=== PATIENT | male | born 1930 | race Caucasian/White ===

== ENCOUNTER 2018-06-05 11:39 | Inpatient (IN) ==
[2018-06-05] MEDS ORDERED: Ondansetron ODT 4 MG TAB.RAPDIS SL ONE (12:01)
--- NOTE | 2018-06-05 12:02 | Emergency Department Note ---
Disposition Clinical Impression: Dehydration, Drug-induced nausea and vomiting, Prostate cancer Disposition: Admitted As Inpatient Condition: Fair General Adult HPI - General Chief complaint: ED Nausea/Vomiting/Diarrhea Stated complaint: Vomiting,Weakness,CA Pt Time Seen by Provider: 06/05/18 11:55 Source: patient, family Limitations: no limitations - History of Present Illness Pain Scale: 0 - Related Data Home Medications Medication Instructions Recorded Confirmed Levothyroxine [Synthroid] 112 mcg PO 0630 12/14/16 06/05/18 Lupron Depot 45 mg IM [id number] 12/14/16 06/05/18 Tamsulosin HCl [Flomax] 0.4 mg PO DAILY 01/11/17 06/05/18 Denosumab [Xgeva] 120 mg SQ QMONTH 04/24/17 06/05/18 Gabapentin [Neurontin] 600 mg PO DAILY 04/24/17 06/05/18 Polyethylene Glycol 3350 [MiraLAX 1 scoop PO DAILY PRN 04/24/17 06/05/18 Powder Bulk 17.9 Oz] Acetaminophen [Tylenol] 500 mg PO Q6HR PRN 05/29/17 06/05/18 Previous Rx's Medication Instructions Recorded RX: PredniSONE [Cam] 5 mg PO BID #180 tablet.dr 12/19/17 Ondansetron HCl [Zofran] 4 mg PO Q8HR PRN #90 tab 04/18/18 Prochlorperazine Maleate 10 mg PO Q8HR PRN #90 tablet 04/18/18 [Compazine] RX: Dexamethasone [Decadron] 4 mg PO BID #36 tab 04/18/18 RX: Loperamide [Imodium] 2 mg PO Q4HR PRN #90 capsule 04/18/18 RX: Supplies [SUPPLIES] 1 each .ROUTE PRN PRN #1 each 06/04/18 Allergies Allergy/AdvReac Type Severity Reaction Status Date / Time Penicillins Allergy UNKNOWN Verified 06/05/18 11:52 Past Medical History - Past Medical History Medical history: Reports: cancer, diabetes, GERD, hyperlipidemia, hypertension, thyroid disease, valvular heart disease, other Surgical history: Reports: cataract, herniorrhaphy, other (Hemorrhoidectomy, skin cancer excisions) Psychiatric history: Reports: no psych history - Social History Smoking Status: Former smoker Smokeless Tobacco Status: No Alcohol use: Reports: rarely Drug use: Reports: none Physical Exam - General Limitations: no limitations General appearance: alert, in no apparent distress Course Vital Signs Temperature 97.3 F L 06/05/18 11:50 Pulse Rate 70 06/05/18 11:50 Respiratory Rate 16 06/05/18 11:50 Blood Pressure 136/80 06/05/18 11:50 O2 Sat by Pulse Oximetry 94 06/05/18 11:50 Temperature 98.0 F 06/05/18 17:08 Pulse Rate 85 06/05/18 17:08 Respiratory Rate 18 06/05/18 17:08 Blood Pressure 120/55 06/05/18 17:08 O2 Sat by Pulse Oximetry 90 06/05/18 17:08 Oxygen Delivery Oxygen Delivery Room Air Medical Decision Making - Lab Data Result diagrams: 06/05/18 14:53 06/05/18 12:41 Lab Results 06/05/18 06/05/18 06/05/18 Range/Units 12:41 14:53 14:53 WBC 8.9 (4.3-11.1) K/mcL RBC 3.57 L (4.19-5.50) M/mcL Hgb 10.1 L (12.9-16.9) g/dL Hct 34.1 L (37.5-50.1) % MCV 95.5 (83.0-100.0) fL MCH 28.3 (28.0-33.3) pg MCHC 29.6 L (31.6-35.5) g/dL RDW 20.3 H (11.5-14.5) % Plt Count 139 L (140-400) K/mcL MPV 11.0 (9.4-12.4) fL Immature Gran % 2.6 (0-4) % Seg Neutrophils % 87.5 % Lymphocytes % 3.0 % Monocytes % 6.5 % Eosinophils % 0.1 % Basophils % 0.3 % Neutrophils # 7.8 (1.6-8.9) K/mcL Lymphocytes # 0.3 L (0.6-4.6) K/mcL Monocytes # 0.6 (0.0-1.3) K/mcL Eosinophils # 0.0 (0.0-0.6) K/mcL Basophils # 0.0 (0.0-0.2) K/mcL Nucleated RBCs/100 WBC 0.7 H (0) /100 WBC PT 12.9 H (9.4-12.1) Seconds INR 1.1 Sodium 139 (136-145) mEq/L Potassium 4.6 (3.5-5.1) mEq/L Chloride 103 (98-107) mEq/L Carbon Dioxide 22 L (23-29) mEq/L BUN 42 H (8-23) mg/dL Creatinine 1.41 H (0.70-1.30) mg/dL Est GFR ( Amer) 58 L (> 60) Est GFR (Non-Af Amer) 48 L (> 60) BUN/Creatinine Ratio 30 H (6-26) Glucose 154 H (70-105) mg/dL Calculated Osmolality 302 H (280-300) Uric Acid 11.0 H (2.3-7.6) mg/dL Calcium 8.2 L (8.6-10.3) mg/dL Phosphorus 3.1 (2.7-4.5) mg/dL Magnesium 2.4 (1.6-2.6) mg/dL Attestation Statement - Attestation Attestation: I examined this patient and my medical decision-making was reviewed with the Resident Physician. I agree with the documented findings, disposition and treatment plan as described except to the extent set forth below. [id number] time provided Patient [facility] from [facility] where he is being treated with chemotherapy for metastatic prostate cancer. He complains of nausea and vomiting. He denies having any pain. He states the anti-emetics as administered at the [facility] prior to arrival were ineffective
[2018-06-05] MEDS ORDERED: Ringers Solution, Lactated 1,000 ML IVC ONE (12:29)
--- NOTE | 2018-06-05 12:31 | Emergency Department Note ---
Disposition Clinical Impression: Dehydration, Drug-induced nausea and vomiting, Prostate cancer Disposition: Admitted As Inpatient Condition: Fair Instructions: Acute Nausea and Vomiting (ED) Referrals: NONE,PCP [Primary Care Provider] - Forms: ED Satisfaction Letter Time of Disposition: 15:15 General Adult HPI - General Chief complaint: ED Nausea/Vomiting/Diarrhea Stated complaint: Vomiting,Weakness,CA Pt Time Seen by Provider: 06/05/18 11:55 Source: patient, family Limitations: no limitations Nursing Notes Reviewed: Yes Vital Signs Reviewed: Yes - History of Present Illness HPI Narrative: This a 87-year-old male with past medical history significant for metastatic prostate cancer, hypertension, hyperlipidemia, thyroid disease, valvular heart disease who presents from [facility] with nausea and vomiting. Per linette somers, patient has experienced nausea and vomiting worsening over the past day, but off and on for the past 3 weeks. States that he woke up this morning feeling nauseous, has vomited 8-10 times since then. Associated with loose stools, fatigue, lethargy, weakness, lightheadedness , decreased appetite over the past few days. Of note, patient has also been constipated of recent, but constipation is improved with MiraLAX. Patient's states that most of symptoms began after chemotherapy treatment approximately 3 weeks ago. Denies hematemesis, melena, hematochezia. Otherwise denies fevers/chills, headache, blurry vision, chest pain, shortness of breath, abdominal pain. Patient was receiving chemotherapy today, but continue to complain of nausea. He was given medication at [facility] (patient does not recall what he was given), but nausea did not subside and so presented to the ED. Denies recent sick contacts or upper respiratory symptoms. Pt Subjective Complaint: Nausea, Vomiting Onset (ago): day(s) (Past 1 day) Location: abdomen Radiation: non-radiation Pain Severity: mild Pain Scale: 0 Consistency: constant (Constant nausea) Improves with: nothing Worsens with: nothing Associated symptoms: Reports: loss of appetite, nausea/vomiting. Denies: confusion, chest pain, cough, diaphoresis, fever/chills, headaches, malaise, ra sh, shortness of breath, syncope, weakness Treatments Prior to Arrival: none - Related Data Home Medications Medication Instructions Recorded Confirmed Levothyroxine [Synthroid] 112 mcg PO 0630 12/14/16 06/05/18 Lupron Depot 45 mg IM [id number] 12/14/16 06/05/18 Tamsulosin HCl [Flomax] 0.4 mg PO DAILY 01/11/17 06/05/18 Denosumab [Xgeva] 120 mg SQ QMONTH 04/24/17 06/05/18 Gabapentin [Neurontin] 600 mg PO DAILY 04/24/17 06/05/18 Polyethylene Glycol 3350 [MiraLAX 1 scoop PO DAILY PRN 04/24/17 06/05/18 Powder Bulk 17.9 Oz] Acetaminophen [Tylenol] 500 mg PO Q6HR PRN 05/29/17 06/05/18 Previous Rx's Medication Instructions Recorded PredniSONE [Cam] 5 mg PO BID #180 tablet. 12/19/17 Dexamethasone [Decadron] 4 mg PO BID #36 tab 04/18/18 Loperamide [Imodium] 2 mg PO Q4HR PRN #90 capsule 04/18/18 Ondansetron HCl [Zofran] 4 mg PO Q8HR PRN #90 tab 04/18/18 Prochlorperazine Maleate 10 mg PO Q8HR PRN #90 tablet 04/18/18 [Compazine] Supplies [SUPPLIES] 1 each .ROUTE PRN PRN #1 each 06/04/18 Allergies Allergy/AdvReac Type Severity Reaction Status Date / Time Penicillins Allergy UNKNOWN Verified 06/05/18 11:52 All systems ED: reviewed and negative except as stated. Constitutional: Reports: weakness. Denies: fever, chills, night sweats Eyes: Denies: vision change ENT ED: Denies: hearing loss Cardiovascular: Denies: chest pain, palpitations, dyspnea on exertion, orthopnea, syncope Respiratory: Denies: cough, dyspnea Gastrointestinal: Reports: nausea, vomiting, diarrhea, constipation. Denies: abdominal pain, hematemesis, melena, hematochezia Genitourinary: Denies: dysuria Musculoskeletal: Denies: back pain Neurological: Reports: weakness, other (Lightheadedness). Denies: headache, numbness, paresthesias Endocrine: Reports: fatigue Past Medical History - Past Medical History Attestation: Yes The following information was validated with the patient. Source: patient, old records reviewed Medical history: Reports: cancer, diabetes, GERD, hyperlipidemia, hypertension, thyroid disease, valvular heart disease, other Surgical history: Reports: cataract, herniorrhaphy, other (Hemorrhoidectomy, skin cancer excisions) Psychiatric history: Reports: no psych history - Social History Smoking Status: Former smoker Smokeless Tobacco Status: No Alcohol use: Reports: rarely Drug use: Reports: none Physical Exam - General Limitations: no limitations General appearance: alert, in no apparent distress - Head Head exam: atraumatic, normocephalic, normal inspection - Eye Eye exam: Present: normal appearance, PERRL, EOMI - ENT ENT exam: normal exam, normal oropharynx, mucous membranes dry - Chest Chest inspection: Present: normal inspection, symmetric chest wall rise - Respiratory Respiratory exam: Present: normal lung sounds bilaterally - Cardiovascular Cardiovascular exam: Present: regular rate (Irregular rhythm; 2/6 systolic murmur appreciated in the right parasternal second intercostal space), systolic murmur, +S1, +S2 - Abdominal Exam Abdominal exam: Present: soft, Non-Tender, normal bowel sounds. Absent: guarding, rebound - Extremities Exam Extremities exam: Present: normal inspection, full ROM, normal capillary refill - Neurological Exam Neurological exam: Present: alert, oriented X3, CN II-XII intact - Psychiatric Psychiatric exam: Present: normal affect, normal mood Course Course Narrative: This is a 87-year-old male with past medical history significant for metastatic prostate cancer who presented with nausea and vomiting over the past day. Patient was in cancer Center this morning for chemotherapy, and noted to be extremely nauseous. Patient did not respond to medication given in cancer Center, and was subsequently sent to ED. On arrival patient noted to be dehydrated, very nauseous. On exam, patient looked lethargic, and very uncomfortable. Otherwise no focal findings. Lab work obtained, and patient was given sublingual Zofran. Patient was started on 1 L bolus of lactated Ringer's. Lab work was indicative of elevated uric acid, decreased calcium, with normal phosphate and Potassium. However suspicion of tumor lysis syndrome was raised. Spoke with Tala Ball, oncology, was also concern with patie nt's elevated uric acid. Given multiple concerns in this metastatic prostate cancer patient, spoke with Dr. Orozco who admitted patient to hospital service. - Reevaluation(s) Reevaluation #1: Patient seen and examined with Dr. Bui. We will trial sublingual Zofran for treatment of nausea. However given patient tachycardia and lack of appetite, will give patient bolus of lactated Ringer's and check labs. Additionally with irregular heart rhythm, will get EKG. If nausea persists, we will consider IV medications. Time: 13:30 Reevaluation #2: Patient mildly improved after lactated Ringer's, and sublingual Zofran. Reports improving nausea. Lab work was significant for elevated uric acid, decreased calcium. Possibility of tumor lysis syndrome considered. Consultation with heme oncology and spoke with Tala whittaker. Given patient's dehydration, nausea, vomiting, possibility of tumor lysis syndrome, we will admit to hospitalist service. Spoke with Dr. Orozco who accepted patient. Time: 14:45 Vital Signs Temperature 97.3 F L 06/05/18 11:50 Pulse Rate 70 06/05/18 11:50 Respiratory Rate 16 06/05/18 11:50 Blood Pressure 136/80 06/05/18 11:50 O2 Sat by Pulse Oximetry 94 06/05/18 11:50 Temperature 97.3 F L 06/05/18 11:50 Pulse Rate 87 06/05/18 14:25 Respiratory Rate 20 06/05/18 14:25 Blood Pressure 132/65 06/05/18 14:25 O2 Sat by Pulse Oximetry 98 06/05/18 14:25 Oxygen Delivery Oxygen Delivery Room Air Medical Decision Making - [facility] Narrative Medical decision making narrative: 87-year-old male with past medical history significant for metastatic prostate cancer presents with nausea and vomiting from cancer Center. Patient was given sublingual Zofran while here, and additionally given 1 L bolus of lactated Ringer's. Patient reported improvement, and improving nausea. However lab work was notable for hyperuricemia and hypocalcemia. Concern for tumor lysis syndrome. Discussed case with oncology and hospitalist. Given patient's metastatic cancer and dehydration, will admit patient for further management. - Differential Diagnosis Dehydration, gastroenteritis, tumor lysis syndrome, influenza - Medical Records Medical records reviewed: Yes I reviewed the patient's medical records. - Lab Data Lab results reviewed: Yes I reviewed the patient's lab results. Result diagrams: 06/05/18 12:41 Lab Results 06/05/18 Range/Units 12:41 Sodium 139 (136-145) mEq/L Potassium 4.6 (3.5-5.1) mEq/L Chloride 103 (98-107) mEq/L Carbon Dioxide 22 L (23-29) mEq/L BUN 42 H (8-23) mg/dL Creatinine 1.41 H (0.70-1.30) mg/dL Est GFR ( Amer) 58 L (> 60) Est GFR (Non-Af Amer) 48 L (> 60) BUN/Creatinine Ratio 30 H (6-26) Glucose 154 H (70-105) mg/dL Calculated Osmolality 302 H (280-300) Uric Acid 11.0 H (2.3-7.6) mg/dL Calcium 8.2 L (8.6-10.3) mg/dL Phosphorus 3.1 (2.7-4.5) mg/dL Magnesium 2.4 (1.6-2.6) mg/dL - EKG Data EKG #1 EKG attestation: Yes I reviewed and interpreted this EKG. EKG results narrative: sinus rhythm, irregular rhythm, heart rate = 81, LA = 169, QRS = 137, QTC = 491, left axis deviation; normal sinus rhythm with PACs; otherwise no acute ST changes. EKG is largely unchanged from previous EKG on 01/26/2017 EKG shows normal: sinus rhythm Rate: normal Rhythm: NSR, PAC's [place]/QRS: left axis deviation QTc: prolonged Ectopy: PAC When compared to previous EKG there are: no significant changes Interpretation: no acute changes
[2018-06-05 13:26] LABS: Calcium 8.2 mg/dL (8.6-10.3); Magnesium 2.4 mg/dL (1.6-2.6); Phosphorous 3.1 mg/dL (2.7-4.5); Potassium 4.6 mEq/L (3.5-5.1)
[2018-06-05] MEDS: Acetaminophen 325 MG TABLET PO PRN ×2 (15:07→21:31)
[2018-06-05 15:31] LABS: Basophils % 0.3 %; Eosinophils % 0.1 %; Hematocrit 34.1 % (37.5-50.1); Hemoglobin 10.1 g/dL (12.9-16.9); Immature Granulocytes % 2.6 % (0-4); Lymphocytes # 0.3 K/mcL (0.6-4.6); Mean Corpuscular HGB Conc 29.6 g/dL (31.6-35.5); Mean Corpuscular Hemoglobin 28.3 pg (28.0-33.3); Mean Corpuscular Volume 95.5 fL (83.0-100.0); Monocytes # 0.6 K/mcL (0.0-1.3); Monocytes % 6.5 %; Neutrophils # 7.8 K/mcL (1.6-8.9); Nucleated Red Blood Cells 0.7 /100 WBC (0); Platelet Count 139 K/mcL (140-400); Red Blood Count 3.57 M/mcL (4.19-5.50); Red Cell Distribution Width 20.3 % (11.5-14.5); Segmented Neutrophils % 87.5 %
[2018-06-05 15:40] LABS: INR 1.1; Prothrombin Time 12.9 Seconds (9.4-12.1)
[2018-06-05] MEDS ORDERED: Naloxone 0.4 MG/ML INJ IVP PRN (16:33)
--- NOTE | 2018-06-05 16:55 | Internal Med History&Physical ---
Date of Encounter: 06/05/18 Time of Encounter: 16:00 Internal Medicine - H&P: HPI Chief complaint: Nausea and vomiting Admitted From: Home Plans for Post Hospital Care: Home History of present illness: Mr. Sanchez is a 87 year old male is an to ER for nausea and vomiting. Past medical history is significant for hypothyroidism, metastatic prostate cancer on chemotherapy. Patient has nausea vomiting started from this morning. Patient has more than 10 times vomiting. The vomiting are greenish fluid, no coffee ground emesis, no blood in it. Patient has mild right-sided abdominal pain. No diarrhea. Patient also has no fever. Patient has no chest pain or shortness of breath. Patient is supposed to have a chemotherapy today but not started chemotherapy yet. Patient has finished two rounds of chemotherapy, last chemotherapy was 3 weeks ago. Patient was treated with IV fluid and Zofran in the emergency room. His symptoms has significantly improved after treatment. Patient was admitted for further management. Past Med Surg Social Fam HX - Past Medical History Medical history: cancer, diabetes, GERD, hyperlipidemia, hypertension, thyroid disease, valvular heart disease, other Additional medical history: CA OF BONE AND PROSTATE. SKIN CA Psychiatric history: no psych history - Past Surgical History Surgical History: cataract, herniorrhaphy, other (Hemorrhoidectomy, skin cancer excisions) - Social History Smoking Status: Former smoker Smokeless Tobacco Status: No Alcohol use: rarely Drug use: none - Family History Mother History Unknown: Yes Internal Medicine - H&P: Meds Levothyroxine [Synthroid] 112 mcg PO 0630 12/14/16 [History] Lupron Depot 45 mg IM [id number] 12/14/16 [History] Tamsulosin HCl [Flomax] 0.4 mg PO DAILY 01/11/17 [History] Denosumab [Xgeva] 120 mg SQ QMONTH 04/24/17 [History] Gabapentin [Neurontin] 600 mg PO DAILY 04/24/17 [History] Polyethylene Glycol 3350 [MiraLAX Powder Bulk 17.9 Oz] 1 scoop PO DAILY PRN 04/24/17 [History] Acetaminophen [Tylenol] 500 mg PO Q6HR PRN 05/29/17 [History] PredniSONE [Cam] 5 mg PO BID #180 tablet. 12/19/17 [Rx] Dexamethasone [Decadron] 4 mg PO BID #36 tab 04/18/18 [Rx] Loperamide [Imodium] 2 mg PO Q4HR PRN #90 capsule 04/18/18 [Rx] Ondansetron HCl [Zofran] 4 mg PO Q8HR PRN #90 tab 04/18/18 [Rx] Prochlorperazine Maleate [Compazine] 10 mg PO Q8HR PRN #90 tablet 04/18/18 [Rx] Supplies [SUPPLIES] 1 each .ROUTE PRN PRN #1 each 06/04/18 [Rx] Allergy/AdvReac Type Severity Reaction Status Date / Time Penicillins Allergy UNKNOWN Verified 06/05/18 11:52 All Systems PM: A 10-system review of systems was performed and is negative for pertinent findings except as documented above in the HPI. - Constitutional Vitals: Temp Pulse Resp BP Pulse Ox 97.3 F L 89 18 113/61 97 06/05/18 11:50 06/05/18 16:02 06/05/18 16:16 06/05/18 16:16 06/05/18 16:02 Exam: Pt is AAO x 3, in NAD HEENT: NC/AT, PERRL Neck: Supple, no JVD, no LAD Lungs: CTA b/l Heart: S1S2, RRR Abd: Soft, mild tenderness on RLQ, without rebound or guarding, BS hyperactive Ext: ROM wnl, no pedal edema Neuro: No focal deficit Internal Med - H&P Results - Labs CBC & Chem 7: 06/05/18 14:53 06/05/18 12:41 Labs: Short CBC 06/05/18 Range/Units 14:53 WBC 8.9 (4.3-11.1) K/mcL Hgb 10.1 L (12.9-16.9) g/dL Hct 34.1 L (37.5-50.1) % Plt Count 139 L (140-400) K/mcL Neutrophils # 7.8 (1.6-8.9) K/mcL BMP 06/05/18 12:41 Sodium 139 Potassium 4.6 Chloride 103 Carbon Dioxide 22 L BUN 42 H Creatinine 1.41 H Glucose 154 H Calcium 8.2 L - Assessment and Plan (1) Nausea and vomiting Current Visit: Yes Status: Acute Assessment and plan: Etiology is undetermined. Less likely related to chemotherapy because patient did not receive chemotherapy today and last chemotherapy was 3 weeks ago. Possibly viral gastritis. - Will order abdominal CT to rule out obstruction, gallstones, or appendicitis, etc. - Check his liver function and lipase - Continue IV fluid, place patient on clear liquid diet, zofran iv prn for nausea - Patient denies chest pain, EKG unremarkable, no history of CAD or risk factors, less likely ACS Qualifiers: Vomiting type: unspecified Qualified Code(s): R11.2 - Nausea with vomiting, unspecified (2) DVT prophylaxis Current Visit: Yes Status: Acute Assessment and plan: Heparin SC (3) Hypothyroidism Current Visit: Yes Status: Acute Assessment and plan: Continue home medications Qualifiers: Qualified Code(s): E03.9 - Hypothyroidism, unspecified (4) Dehydration Current Visit: Yes Status: Acute Assessment and plan: Continue IV fluid as above (5) Prostate cancer Current Visit: Yes Status: Acute Assessment and plan: With multiple bone metastasis. Oncology consult called by emergency room. - Continue pain control - Patient has no hypercalcemia, calcium 8.2 - Time Spent With Patient Total time spent is greater than 50% in coordination of care (as documented) at patient's floor/unit and/or counseling patient: 40 minutes Greater than 35 minutes
[2018-06-05] MEDS: Ringers Solution, Lactated 1,000 ML IVC SCH (18:11)
[2018-06-05] MEDS: *HR* Heparin 5,000 UNIT/ML VIAL SQ SCH (18:13)
[2018-06-05] MEDS: predniSONE 5 MG TABLET PO SCH (18:13)
[2018-06-05 22:19] LABS: Albumin 3.5 g/dL (3.5-5.7); Albumin/Globulin Ratio 1.5 (1.1-2.2); Bilirubin,Direct 0.2 mg/dL (0.0-0.2); Bilirubin,Indirect 0.3 mg/dL (0.0-1.2); Bilirubin,Total 0.5 mg/dL (0.3-1.0); Globulin 2.4 g/dL (2.4-3.5); Total Protein 5.9 g/dL (6.4-8.9)
[2018-06-05] MEDS ORDERED: traMADol 50 MG TABLET PO ONE (22:56)
[2018-06-06] MEDS: Acetaminophen 325 MG TABLET PO PRN (05:22)
[2018-06-06] MEDS: *HR* Heparin 5,000 UNIT/ML VIAL SQ SCH ×2 (05:22→17:23)
[2018-06-06] MEDS: Ringers Solution, Lactated 1,000 ML IVC SCH (05:22)
[2018-06-06 05:25] LABS: Basophils % 0.5 %; Eosinophils % 0.3 %; Hematocrit 29.8 % (37.5-50.1); Hemoglobin 8.9 g/dL (12.9-16.9); Immature Granulocytes % 2.7 % (0-4); Lymphocytes # 0.3 K/mcL (0.6-4.6); Lymphocytes % 4.7 %; Mean Corpuscular HGB Conc 29.9 g/dL (31.6-35.5); Mean Corpuscular Hemoglobin 28.3 pg (28.0-33.3); Mean Corpuscular Volume 94.9 fL (83.0-100.0); Mean Platelet Volume 10.9 fL (9.4-12.4); Monocytes # 0.4 K/mcL (0.0-1.3); Monocytes % 6.6 %; Neutrophils # 5.7 K/mcL (1.6-8.9); Nucleated Red Blood Cells 1.1 /100 WBC (0); Platelet Count 122 K/mcL (140-400); Red Blood Count 3.14 M/mcL (4.19-5.50); Red Cell Distribution Width 20.7 % (11.5-14.5); Segmented Neutrophils % 85.2 %
[2018-06-06] MEDS: Ondansetron 4 MG/2 ML VIAL IVP PRN ×2 (05:29→11:05)
[2018-06-06 05:47] LABS: BUN/Creatinine Ratio 29 (6-26); Blood Urea Nitrogen 35 mg/dL (8-23); Calcium 7.4 mg/dL (8.6-10.3); Carbon Dioxide 23 mEq/L (23-29); Chloride 106 mEq/L (98-107); Glucose 94 mg/dL (70-105); Magnesium 2.2 mg/dL (1.6-2.6); Osmolality,Calculated 294 (280-300); Potassium 4.5 mEq/L (3.5-5.1); Sodium 138 mEq/L (136-145); eGFR For Non-African Americans 57 (> 60)
[2018-06-06] MEDS: predniSONE 5 MG TABLET PO SCH ×2 (07:50→17:20)
[2018-06-06] MEDS ORDERED: Gadolinium Contrast Agent (WT Based) IV PRN (12:57)
[2018-06-06] MEDS ORDERED: *HR* Promethazine 25 MG/ML VIAL IVP PRN (12:58)
[2018-06-06] MEDS: OXYCODONE Oral CONC 10 MG/0.5 ML ORAL.SYG SL PRN ×2 (13:45→21:15)
--- NOTE | 2018-06-06 15:40 | Oncology Inp Consult Note ---
<Tala Wolf L - Last Filed: 06/06/18 15:49> Date of Encounter: 06/06/18 Time of Encounter: 12:00 Assessment and Plan (1) Nausea and vomiting Status: Acute Assessment and plan: Not well controlled on Zofran Added Phenergan 25 mg IV as needed IV fluid for rehydration Qualifiers: Vomiting type: unspecified Qualified Code(s): R11.2 - Nausea with vomiting, unspecified (2) DVT prophylaxis Status: Acute Assessment and plan: Heparin 5000 units subcutaneous (3) Prostate cancer Status: Acute Assessment and plan: Metastatic prostate cancer, Stage IV, with widespread bony disease. Prior treatment includes biraterone/prednisone started 01/15/17, this was stopped due to slow PSA progression up to 158. Started on Taxotere, cycle #1 04/24/2018, tolerated well with some mild fatigue. He presented for cycle #3 on 06/04/2018 acutely not feeling well with significant nausea and vomiting and concern for dehydration. He was given hydration along with Pepcid and Kytril with no improvement in symptoms and was asked to present to ER. CT of the abdomen and pelvis which revealed interval development of multiple hepatic hypodensities up to about 4 cm in size which most compatible metastatic disease, new right pelvic iliac chain lymphadenopathy, unchanged diffuse skeletal metastasis. PSA is noted to increase from 341 on 05/15/2018 to now 1005 on 06/05/2018. Plan: Discussed radiographic and biochemical progression with patient and patient's family at bedside. We discussed Options for treatment which include aggressive treatment approach with further treatment options versus hospice Patient and family would like to consider options over the weekend as we continued to work to provide him symptom relief Patient is experiencing increased abdominal pain as well as nausea and vomiting. She did not sleep well last night. For symptom control I have added Ativan PRN at bedtime to be given for anxiety or insomnia. Oxycodone oral solution has been added for pain control, (see below) Zpfran/phenergan for nausea MRI brain wo/w contrast given his persistent nausea/vomiting with noted progression Consider palliative care consult if needed for symptom management or after weekend if patient/family decided to pursue hospice route (4) Abdominal pain Status: Acute Assessment and plan: Abdominal pain likely secondary to progressive malignancy Plan: Oxycodone 5 mg oral solution has been added for pain control PRN, patient is opioid naive, starting at low dose and can increase if needed He may benefit from long-acting pain control, we will monitor use of when necessary medication to determine need for extended release If his pain remains poorly controlled over weekend please consider consulting with palliative care team for further management, I have already discussed this case with them Qualifiers: Qualified Code(s): R10.9 - Unspecified abdominal pain - Data of Consult Patient: known to practice within the last 3 years Consult date: 06/06/18 Requesting Physician: Aashish Jones Primary Care Provider: PCP NONE - Consult Narrative Reason for consult: Prostate Cancer History of present illness: Mr. Sanchez is an 87 male with known metastatic prostate cancer, Stage IV, with widespread bony disease. Prior treatment includes biraterone/prednisone started 01/15/17, this was stopped due to slow PSA progression up to 158. Started on Taxotere, cycle #1 04/24/2018, tolerated well with some mild fatigue. He presented for cycle #3 on 06/04/2018 acutely not feeling well with significant nausea and vomiting and concern for dehydration. He was given hydration along with Pepcid and Kytril with no improvement in symptoms and was asked to present to ER. On arrival to ER he had CT of the abdomen and pelvis which revealed interval development of multiple hepatic hypodensities up to about 4 cm in size which most compatible metastatic disease, new right pelvic iliac chain lymphadenopathy, unchanged diffuse skeletal metastasis. PSA is noted to increase from 341 on 05/15/2018 to now 1005 on 06/05/2018. He has been admitted for symptomatic management Past Med Surg [facility] - Past Medical History Medical history: cancer, diabetes, GERD, hyperlipidemia, hypertension, thyroid disease, valvular heart disease, other Additional medical history: CA OF BONE AND PROSTATE. SKIN CA Psychiatric history: no psych history - Past Surgical History Surgical History: cataract, herniorrhaphy, other (Hemorrhoidectomy, skin cancer excisions) - Social History Smoking Status: Former smoker Smokeless Tobacco Status: No Alcohol use: rarely Drug use: none - Family History Mother History Unknown: Yes Medications and Allergies Levothyroxine [Synthroid] 112 mcg PO 0630 12/14/16 [History] Lupron Depot 45 mg IM [id number] 12/14/16 [History] Tamsulosin HCl [Flomax] 0.4 mg PO DAILY 01/11/17 [History] Denosumab [Xgeva] 120 mg SQ QMONTH 04/24/17 [History] Gabapentin [Neurontin] 600 mg PO DAILY 04/24/17 [History] RX: PredniSONE [Cam] 5 mg PO BID #180 tablet. 12/19/17 [Rx] Ondansetron HCl [Zofran] 4 mg PO Q8HR PRN #90 tab 04/18/18 [Rx] Abiraterone Acetate [Zytiga] 500 mg PO DAILY 06/06/18 [History] Acetaminophen/Diphenhydramine [Acetaminophen Pm Caplet] 1 each PO QPM PRN 06/06/18 [History] Cholecalciferol (D-3) [Vitamin D] 1,000 unit PO DAILY 06/06/18 [History] Loratadine [Allergy Relief] 10 mg PO DAILY 06/06/18 [History] Pegfilgrastim [Neulasta (For Outpatient Infusion)] 6 mg SQ AD 06/06/18 [History] Allergy/AdvReac Type Severity Reaction Status Date / Time Penicillins Allergy UNKNOWN Verified 06/05/18 11:52 Constitutional: Present: anorexia, fatigue, weakness, weight loss. Absent: chills, fever(s) Eyes: Absent: change in vision Nose, mouth and throat: Absent: dysphagia, odynophagia Cardiovascular: Absent: chest pain, palpitations Respiratory: Present: dyspnea on exertion Gastrointestinal: Present: as per HPI, abdominal pain, nausea, vomiting. Absent: hematemesis, hematochezia, melena Genitourinary: Absent: dysuria, hematuria Musculoskeletal: Present: muscle weakness Integumentary: Absent: rash, wounds Neurological: Absent: focal weakness, frequent falls Psychiatric: Present: as per HPI Hematologic/Lymphatic: Present: as per HPI Oncology - Exam - Constitutional General appearance: cooperative, no acute distress, no febrile Exam: appears uncomfortable secondary to pain/nausea - Head Head exam: Present: atraumatic - ENT ENT exam: Present: mucous membranes moist, normal oropharynx - Respiratory Respiratory exam: Present: decreased breath sounds, CTAB. Absent: respiratory distress - Cardiovascular Cardiovascular exam: Present: RRR, +S1, +S2 - GI/Abdominal GI/Abdominal exam: Present: normal bowel sounds, soft, tenderness Additional comments: diffuse tenderness and tenderness to RUQ - Extremities Exam Extremities exam: Present: normal inspection. Absent: calf tenderness - Neurological Exam Neurological exam: Present: alert, oriented X3, no focal deficits, strengths equal and symetr throughout - Psychiatric Psychiatric exam: Present: anxious - Skin Skin exam: Present: dry, intact, pallor, warm Consult Discharge Plan - Plan Referrals: Martin Wiley MD [Partnered Physician] - 06/12/18 11:30 am (please follow up as schedule..) Inpatient Charges Provider: Dr. Quang Edge <Ricardo Edge - Last Filed: 06/06/18 17:17> Date of Encounter: 06/06/18 - Data of Consult Requesting Physician: Aashish Jones Primary Care Provider: PCP NONE - Attending Attestation Metastatic prostate ca with PD on docetaxel, prior Rx with abiraterone. LArge liver lesions, skeletal mets and adenopathy--reports reviewed with patient family He is not wanting to take any more chemotherapy. FAmily questioning xtandi which can be considered once symptoms imorove. PAlliative/hospice option d.w patient and son/. Will re-evaluate for symptom improvement and further management. I examined this patient and my medical decision-making was reviewed with the Advanced Practice Nurse, Tala Wolf. I agree with the documented findings, disposition and treatment plan as described except to the extent set forth below. Inpatient Charges Provider: Dr. Quang Edge Consult - Inpatient: [id number]
[2018-06-06] MEDS: *HR* LORazepam Oral Conc 2 MG/ML PO SCH (21:00)
[2018-06-06] MEDS ORDERED: [UNRECOGNIZED DRUG - OTHER] PO PRN (22:10)
--- NOTE | 2018-06-06 22:10 | Electrocardiograph Report ---
[place] [id number] Test Date: 2018-06-05 Pat Name: Lenny Sanchez Department: EXAM23 Room: 2A13 Gender: M Crusher Machine Operator: : [id number] Requested By: William Up Order Number: [id number] Reading MD: Clay Cabello Measurements Intervals [place] Rate: 81 P: 33 [place]: 169 QRS: -17 QRSD: 137 T: 132 QT: 423 QTc: 491 Interpretive Statements Sinus rhythm Atrial premature complexes Left bundle branch block Electronically Signed On 06-06-2018 22:08:46 EDT by Clay Cabello
--- NOTE | 2018-06-06 22:23 | Internal Med Progress Note ---
Hospitalist Progress Note - Encounter Date of Encounter: 06/06/18 Time of Encounter: 19:00 - Subjective Interval History: SUBJECTIVE: The patient feels strongerafter he had received IV fluids. He has less nausea; has not vomited recently. Denies having significant chest pain or abdominal pain. OBJECTIVE: Skin: Free of rash and discoloration. ENMT: Oral/pharyngeal mucosa is normal in appearance. Eyes: Sclera is white. There is no discharge from eyes. Respiratory: Normal breath sounds; no crackles or wheezes. CV: Heart is regular; no gallop or murmur. GI: Abdomen is soft and not tender. There is no palpable mass or visceromegaly. Neuro: There is no focal deficits. ADDITIONAL DATA: Hemoglobin is 8.9 with normal WBC and platelet count of 122,000. Pro time INR is 1.1 (from yesterday). Electrolytes are normal. Creatinine is 1.21. Fasting glucose is 94. ASSESSMENT AND PLAN: Prostate cancer with metastasis to bones. Multiple metastatic like lesions in the liver. Admitted with nausea/vomiting and dehydration. Is better after giving him IV fluids. See notes from oncologyaggressive chemotherapy with possibility of significant side effects versus palliative care. Hypothyroidism. Clinically under control. His TSH was normal, when checked in November 2017. Anemia. Likely secondary to advanced prostate cancer. No need for transfusion currently. - Exam Vitals: Temp Pulse Resp BP Pulse Ox 98.6 F 106 17 123/63 92 06/06/18 20:05 06/06/18 20:05 06/06/18 20:05 06/06/18 20:05 06/06/18 20:05 Exam: xx - Assessment and Plan (1) Prostate cancer Current Visit: Yes Status: Acute (2) Dehydration Current Visit: Yes Status: Acute (3) Nausea and vomiting Current Visit: Yes Status: Acute (4) Hypothyroidism Current Visit: Yes Status: Acute (5) Anemia Current Visit: Yes Status: Chronic - Time Spent with Patient Total time spent is greater than 50% in coordination of care (as documented) at patient's floor/unit and/or counseling patient: 25 - 35 minutes Plan of Care Discussed with: patient Internal Medicine: Result - Labs CBC & Chem 7: 06/06/18 04:36 06/06/18 04:36 Labs: Short CBC 06/06/18 Range/Units 04:36 WBC 6.7 (4.3-11.1) K/mcL Hgb 8.9 L (12.9-16.9) g/dL Hct 29.8 L (37.5-50.1) % Plt Count 122 L (140-400) K/mcL Neutrophils # 5.7 (1.6-8.9) K/mcL BMP 06/06/18 04:36 Sodium 138 Potassium 4.5 Chloride 106 Carbon Dioxide 23 BUN 35 H Creatinine 1.21 Glucose 94 Calcium 7.4 L Liver Function 06/05/18 Range/Units 12:41 Total Bilirubin 0.5 (0.3-1.0) mg/dL Direct Bilirubin 0.2 (0.0-0.2) mg/dL AST 154 H (13-39) Units/L ALT 63 H (7-52) Units/L Alkaline Phosphatase 227 H (34-104) Units/L Albumin 3.5 (3.5-5.7) g/dL - ABG Interpretation ABG results: PT/INR, D-dimer PT 12.9 Seconds (9.4-12.1) H 06/05/18 14:53 - Impressions Impressions Head MRI 06/06/18 12:57 IMPRESSION: 1. No acute intracranial abnormality. 2. Diffuse parenchymal volume loss with moderate chronic white matter microvascular ischemic changes. 3. Right frontal sinusitis. 4. Diffuse osseous metastatic disease. D/ / Tomas Tavares / Tomas Tavares Interpreting Provider: Tomas Tavares Consult Discharge Plan - Plan Referrals: Martin Wiley MD [Partnered Physician] - 06/12/18 11:30 am (please follow up as schedule..) (3) Nausea and vomiting Qualifiers: Vomiting type: unspecified Qualified Code(s): R11.2 - Nausea with vomiting, unspecified (4) Hypothyroidism Qualifiers: Qualified Code(s): E03.9 - Hypothyroidism, unspecified (5) Anemia Qualifiers: Anemia type: unspecified type Qualified Code(s): D64.9 - Anemia, unspecified
[2018-06-07] MEDS: OXYCODONE Oral CONC 10 MG/0.5 ML ORAL.SYG SL PRN ×4 (03:14→20:23)
[2018-06-07] MEDS: *HR* Heparin 5,000 UNIT/ML VIAL SQ SCH ×2 (05:17→16:53)
[2018-06-07] MEDS ORDERED: Gabapentin 300 MG CAPSULE PO SCH (09:00)
[2018-06-07] MEDS ORDERED: ABIRATERONE ACETATE 500 MG PO SCH (09:00)
[2018-06-07] MEDS: Loratadine 10 MG TABLET PO SCH (09:18)
[2018-06-07] MEDS: Cholecalciferol (D-3) 1,000 UNIT TABLET PO SCH (09:18)
[2018-06-07] MEDS: predniSONE 5 MG TABLET PO SCH ×2 (09:18→16:53)
[2018-06-07] MEDS ORDERED: OXYCODONE Oral CONC 10 MG/0.5 ML ORAL.SYG SL ONE (10:40)
--- NOTE | 2018-06-07 22:23 | Internal Med Progress Note ---
Hospitalist Progress Note - Encounter Date of Encounter: 06/07/18 Time of Encounter: 19:00 - Subjective Interval History: SUBJECTIVE: The patient feels stronger, after he had received IV fluids. He has off and on mild nausea but not vomiting. He continues to complain of right upper quadrant abdominal pain. Denies chest pain and difficulty breathing. He is on supplemental oxygen. OBJECTIVE: Skin: Free of rash and discoloration. ENMT: Oral/pharyngeal mucosa is normal in appearance. Eyes: Sclera is white. There is no discharge from eyes. Respiratory: Normal breath sounds; no crackles or wheezes. CV: Heart is regular; no gallop or murmur. GI: Abdomen is soft and tender below the right rib cage, anteriorly. There is no palpable mass or visceromegaly. Neuro: There is no focal deficits. ADDITIONAL DATA (from yesterday): Hemoglobin is 8.9 with normal WBC and platelet count of 122,000. Pro time INR is 1.1 (from yesterday). Electrolytes are normal. Creatinine is 1.21. Fasting glucose is 94. I am ordering CBC, BMP and magnesium for tomorrow morning. ASSESSMENT AND PLAN: Prostate cancer with metastases to bones. Multiple metastatic like lesions in the liver. Admitted with nausea/vomiting and dehydration. Better after giving him IV fluids. See notes from oncologyaggressive chemotherapy with possibility of significant side effects versus palliative care. Hypothyroidism. Clinically under control. His TSH was normal, when checked in November 2017. Anemia. Likely secondary to advanced prostate cancer. No need for transfusion currently. - Exam Vitals: Temp Pulse Resp BP Pulse Ox 98.3 F 99 18 115/56 93 06/07/18 20:03 06/07/18 20:03 06/07/18 20:03 06/07/18 20:03 06/07/18 20:03 Exam: xx - Assessment and Plan (1) Prostate cancer Current Visit: Yes Status: Acute (2) Dehydration Current Visit: Yes Status: Acute (3) Nausea and vomiting Current Visit: Yes Status: Acute (4) Hypothyroidism Current Visit: Yes Status: Acute (5) Anemia Current Visit: Yes Status: Chronic - Time Spent with Patient Total time spent is greater than 50% in coordination of care (as documented) at patient's floor/unit and/or counseling patient: 25 - 35 minutes Plan of Care Discussed with: patient Internal Medicine: Result - Labs CBC & Chem 7: 06/06/18 04:36 06/06/18 04:36 - ABG Interpretation ABG results: PT/INR, D-dimer PT 12.9 Seconds (9.4-12.1) H 06/05/18 14:53 - Impressions Impressions Chest X-Ray 06/07/18 10:41 IMPRESSION: 1. Bibasilar opacities may be due to atelectasis or pneumonia. 2. Skeletal metastases, similar distribution as seen on the prior bone scan. D/ / Pb Merchant MD / Pb Merchant MD Interpreting Provider: Pb Merchant MD Consult Discharge Plan - Plan Referrals: Martin Wiley MD [Partnered Physician] - 06/12/18 11:30 am (please follow up as schedule..) (3) Nausea and vomiting Qualifiers: Vomiting type: unspecified Qualified Code(s): R11.2 - Nausea with vomiting, unspecified (4) Hypothyroidism Qualifiers: Qualified Code(s): E03.9 - Hypothyroidism, unspecified (5) Anemia Qualifiers: Anemia type: unspecified type Qualified Code(s): D64.9 - Anemia, unspecified
--- NOTE | 2018-06-07 22:30 | Internal Med Progress Note ---
Hospitalist Progress Note - Encounter Date of Encounter: 06/07/18 Time of Encounter: 19:00 - Exam Vitals: Temp Pulse Resp BP Pulse Ox 98.3 F 99 18 115/56 93 06/07/18 20:03 06/07/18 20:03 06/07/18 20:03 06/07/18 20:03 06/07/18 20:03 Exam: xx - Assessment and Plan (1) Prostate cancer Current Visit: Yes Status: Acute (2) Dehydration Current Visit: Yes Status: Acute (3) Nausea and vomiting Current Visit: Yes Status: Acute (4) Hypothyroidism Current Visit: Yes Status: Acute (5) Anemia Current Visit: Yes Status: Chronic - Time Spent with Patient Total time spent is greater than 50% in coordination of care (as documented) at patient's floor/unit and/or counseling patient: 25 - 35 minutes Plan of Care Discussed with: patient Internal Medicine: Result - Labs CBC & Chem 7: 06/06/18 04:36 06/06/18 04:36 - ABG Interpretation ABG results: PT/INR, D-dimer PT 12.9 Seconds (9.4-12.1) H 06/05/18 14:53 - Impressions Impressions Chest X-Ray 06/07/18 10:41 IMPRESSION: 1. Bibasilar opacities may be due to atelectasis or pneumonia. 2. Skeletal metastases, similar distribution as seen on the prior bone scan. D/ / Pb Merchant MD / Pb Merchant MD Interpreting Provider: Pb Merchant MD Consult Discharge Plan - Plan Referrals: Martin Wiley MD [Partnered Physician] - 06/12/18 11:30 am (please follow up as schedule..) (3) Nausea and vomiting Qualifiers: Vomiting type: unspecified Qualified Code(s): R11.2 - Nausea with vomiting, unspecified (4) Hypothyroidism Qualifiers: Qualified Code(s): E03.9 - Hypothyroidism, unspecified (5) Anemia Qualifiers: Anemia type: unspecified type Qualified Code(s): D64.9 - Anemia, unspecified
[2018-06-08] MEDS: OXYCODONE Oral CONC 10 MG/0.5 ML ORAL.SYG SL PRN ×5 (01:00→22:35)
[2018-06-08] MEDS: *HR* LORazepam Oral Conc 2 MG/ML PO SCH ×2 (05:03→22:35)
[2018-06-08] MEDS: *HR* Heparin 5,000 UNIT/ML VIAL SQ SCH ×2 (05:05→17:13)
[2018-06-08 07:16] LABS: Basophils % 0.5 %; Eosinophils % 0.5 %; Hematocrit 33.3 % (37.5-50.1); Hemoglobin 10.1 g/dL (12.9-16.9); Immature Granulocytes % 1.4 % (0-4); Lymphocytes # 0.5 K/mcL (0.6-4.6); Lymphocytes % 5.3 %; Mean Corpuscular HGB Conc 30.3 g/dL (31.6-35.5); Mean Corpuscular Volume 95.7 fL (83.0-100.0); Mean Platelet Volume 10.5 fL (9.4-12.4); Monocytes # 0.7 K/mcL (0.0-1.3); Monocytes % 7.7 %; Neutrophils # 7.4 K/mcL (1.6-8.9); Nucleated Red Blood Cells 0.6 /100 WBC (0); Platelet Count 161 K/mcL (140-400); Red Blood Count 3.48 M/mcL (4.19-5.50); Red Cell Distribution Width 21.7 % (11.5-14.5); Segmented Neutrophils % 84.6 %
[2018-06-08 07:35] LABS: BUN/Creatinine Ratio 22 (6-26); Blood Urea Nitrogen 27 mg/dL (8-23); Calcium 7.4 mg/dL (8.6-10.3); Carbon Dioxide 23 mEq/L (23-29); Chloride 105 mEq/L (98-107); Glucose 105 mg/dL (70-105); Magnesium 2.5 mg/dL (1.6-2.6); Osmolality,Calculated 295 (280-300); Potassium 4.6 mEq/L (3.5-5.1); Sodium 140 mEq/L (136-145); eGFR For Non-African Americans 56 (> 60)
[2018-06-08] MEDS: Gabapentin 300 MG CAPSULE PO SCH (09:02)
[2018-06-08] MEDS: Loratadine 10 MG TABLET PO SCH (09:02)
[2018-06-08] MEDS: Cholecalciferol (D-3) 1,000 UNIT TABLET PO SCH (09:03)
[2018-06-08] MEDS: predniSONE 5 MG TABLET PO SCH ×2 (09:03→17:12)
--- NOTE | 2018-06-08 20:56 | Internal Med Progress Note ---
Hospitalist Progress Note - Encounter Date of Encounter: 06/08/18 Time of Encounter: 19:00 - Subjective Interval History: SUBJECTIVE: The patient tells me, that his right upper quadrant abdominal pain is under fair controltakes when necessary oxycodone. Nausea and vomiting subsided. Denies chest pain and difficulty breathing. He is using supplemental oxygen at 2 L/min nasal cannula. OBJECTIVE: Skin: Free of rash and discoloration. ENMT: Oral/pharyngeal mucosa is normal in appearance. Eyes: Sclera is white. There is no discharge from eyes. Respiratory: Normal breath sounds; no crackles or wheezes. CV: Heart is regular; no gallop or murmur. GI: Abdomen is soft and mildly tender below the right rib cage, anteriorly. There is no palpable mass or visceromegaly. Neuro: There is no focal deficits. ADDITIONAL DATA (from yesterday): Hemoglobin is 10.1; 8.9 on 06/06. With normal WBC/platelet count. Electrolytes are normal. Creatinine is 1.22. Fasting glucose is 105. ASSESSMENT AND PLAN: Prostate cancer with metastases to bones. Multiple metastatic like lesions in the liver. Nausea and vomiting observed at admission subsided. His right upper quadrant abdominal pain seems to be under control. See notes from oncologyaggressive chemotherapy with possibility of significant side effects versus palliative care. The patient is to make decision sometime tomorrow. Hypothyroidism. Clinically under control. His TSH was normal, when checked in November 2017. Anemia. Likely secondary to advanced prostate cancer. Mild. Hemoglobin increased from 8.9 to 10.1. - Exam Vitals: Temp Pulse Resp BP Pulse Ox 99.2 F 97 16 126/74 94 06/08/18 19:31 06/08/18 19:31 06/08/18 19:31 06/08/18 19:31 06/08/18 19:31 Exam: xx - Assessment and Plan (1) Prostate cancer Current Visit: Yes Status: Acute (2) Dehydration Current Visit: Yes Status: Resolved (3) Nausea and vomiting Current Visit: Yes Status: Resolved (4) Hypothyroidism Current Visit: Yes Status: Acute (5) Anemia Current Visit: Yes Status: Chronic - Time Spent with Patient Total time spent is greater than 50% in coordination of care (as documented) at patient's floor/unit and/or counseling patient: Internal Medicine: Result - Labs CBC & Chem 7: 06/08/18 07:00 06/08/18 07:00 Labs: Short CBC 06/08/18 Range/Units 07:00 WBC 8.7 (4.3-11.1) K/mcL Hgb 10.1 L (12.9-16.9) g/dL Hct 33.3 L (37.5-50.1) % Plt Count 161 (140-400) K/mcL Neutrophils # 7.4 (1.6-8.9) K/mcL BMP 06/08/18 07:00 Sodium 140 Potassium 4.6 Chloride 105 Carbon Dioxide 23 BUN 27 H Creatinine 1.22 Glucose 105 Calcium 7.4 L - ABG Interpretation ABG results: PT/INR, D-dimer PT 12.9 Seconds (9.4-12.1) H 06/05/18 14:53 Consult Discharge Plan - Plan Referrals: Martin Wiley MD [Partnered Physician] - 06/12/18 11:30 am (please follow up as schedule..) (3) Nausea and vomiting Qualifiers: Vomiting type: unspecified Qualified Code(s): R11.2 - Nausea with vomiting, unspecified (4) Hypothyroidism Qualifiers: Qualified Code(s): E03.9 - Hypothyroidism, unspecified (5) Anemia Qualifiers: Anemia type: unspecified type Qualified Code(s): D64.9 - Anemia, unspecified
[2018-06-09] MEDS: OXYCODONE Oral CONC 10 MG/0.5 ML ORAL.SYG SL PRN ×2 (05:29→16:30)
[2018-06-09] MEDS: *HR* Heparin 5,000 UNIT/ML VIAL SQ SCH ×2 (05:29→17:48)
[2018-06-09] MEDS: Loratadine 10 MG TABLET PO SCH (08:07)
[2018-06-09] MEDS: predniSONE 5 MG TABLET PO SCH ×2 (08:07→16:26)
[2018-06-09] MEDS: Gabapentin 300 MG CAPSULE PO SCH (08:08)
[2018-06-09] MEDS: Cholecalciferol (D-3) 1,000 UNIT TABLET PO SCH (08:08)
--- NOTE | 2018-06-09 10:04 | Oncology Inp Progress Note ---
<Dina Lopez M - Last Filed: 06/09/18 15:56> Date of Encounter: 06/09/18 Time of Encounter: 09:50 (1) Prostate cancer Current Visit: Yes Status: Acute Assessment and plan: Metastatic prostate cancer Metastatic prostate cancer, Stage IV, with widespread bony disease. Prior treatment includes biraterone/prednisone started 01/15/17, this was stopped due to slow PSA progression up to 158. Started on Taxotere, cycle #1 04/24/2018, tolerated well with some mild fatigue. He presented for cycle #3 on 06/04/2018 acutely not feeling well with significant nausea and vomiting and concern for dehydration. He was given hydration along with Pepcid and Kytril with no improvement in symptoms and was asked to present to ER. CT of the abdomen and pelvis which revealed interval development of multiple hepatic hypodensities up to about 4 cm in size which most compatible metastatic disease, new right pelvic iliac chain lymphadenopathy, unchanged diffuse skeletal metastasis. PSA is noted to increase from 341 on 05/15/2018 to now 1005 on 06/05/2018. Plan: Discussed radiographic and biochemical progression with patient and patient's family at bedside. We discussed Options for treatment which include aggressive treatment approach with further treatment options versus hospice 06/09/18: After discussion today, patient declines further treatment and wishes to go home with hospice. Without active treatment patient is expected to have less than 6 months to live. Verbalizes acceptance that is imminent without treatment. (2) Nausea and vomiting Current Visit: Yes Status: Resolved Assessment and plan: Nausea and vomiting: Well-controlled with Zofran and Phenergan. Ativan at bedtime, as needed. Plan: Continue Zofran and Phenergan PRN at discharge. Encourage supplementation with Boost/Ensure. Encourage BRAT diet. Qualifiers: Vomiting type: unspecified Qualified Code(s): R11.2 - Nausea with vomiting, unspecified Oncology: Subj Interval history: Lenny is sleeping intermittently throughout assessment and conversation with his . She notes that taking oxycodone 5 mg is not enough to control the pain. She notes that oxycodone 10 mg allows him to be pain free and rest for six hours, but that he sleeps most of that six hours. He denies pain at this time. He denies nausea and vomiting. He notes improvement his his persistent N+V that he had upon admission. He has a poor appetite, only eating small bites of food. He voices that he would eat better at home with his 's cooking. His voices concern about caring for him at home until she has home health care setup and would like him to go to [facility] in [place] for a short amount of time. At this time, the patient has chosen not to continue with IV chemotherapy, but may want to consider Xtandi along with continuing his Lupron and Xgeva injections. His notes that the Lupron and Xgeva are due on July 17, 2018 and they already have an appointment. Discussed that it may take time to get the Xtandi approved and delivered and they may need another appointment [facility] to discuss with Dr. Thomas. Verbalized understanding, but also voice concern about needing transport with an ambulance if patient continues to be weak. Lenny notes that he may not want to continue any treatment with the side- effects making him feel poor. He will discuss more with his and inform staff of his decision. - Constitutional General appearance: cooperative, no acute distress - Respiratory Respiratory exam: Present: CTAB. Absent: respiratory distress, wheezes, tachypnea - Cardiovascular Cardiovascular exam: Present: +S1, +S2 - GI/Abdominal GI/Abdominal exam: Present: normal bowel sounds, soft - Neurological Exam Neurological exam: Present: alert, oriented X3 - Psychiatric Psychiatric exam: Present: normal affect, normal mood Oncology: Obj Data - Labs CBC & Chem 7: 06/08/18 07:00 06/08/18 07:00 Consult Discharge Plan - Plan Referrals: Martin Wiley MD [Partnered Physician] - 06/12/18 11:30 am (please follow up as schedule..) Inpatient Charges Provider: Dr. Quang Edge <Ricardo Edge - Last Filed: 06/10/18 15:46> Date of Encounter: 06/10/18 Oncology: Subj Interval history: Patient declines any active chemotherapy. He has PD in the liver, bones and LN. He wishes to pursue with hospice care. Life expectancy without active treatment is 6 mo or less. Note is done today to certify prognosis. I examined this patient and my medical decision-making was reviewed with the Advanced Practice Nurse, Dina Lopez. I agree with the documented findings, disposition and treatment plan as described except to the extent set forth below. Oncology: Obj Data - Labs CBC & Chem 7: 06/08/18 07:00 06/08/18 07:00 Inpatient Charges Provider: Dr. Quang Edge Follow up - Inpatient: [id number]
[2018-06-09] MEDS: Ondansetron 4 MG/2 ML VIAL IVP PRN (16:24)
[2018-06-09] MEDS: *HR* LORazepam Oral Conc 2 MG/ML PO SCH (20:49)
--- NOTE | 2018-06-09 20:59 | Internal Med Progress Note ---
Hospitalist Progress Note - Encounter Date of Encounter: 06/09/18 Time of Encounter: 19:00 - Subjective Interval History: SUBJECTIVE: The patients right upper quadrant abdominal pain is under controltakes when necessary oxycodone. Nausea and vomiting subsided. Denies chest pain and difficulty breathing. He is using supplemental oxygen at 2 L/min nasal cannula. OBJECTIVE: Skin: Free of rash and discoloration. ENMT: Oral/pharyngeal mucosa is normal in appearance. Eyes: Sclera is white. There is no discharge from eyes. Respiratory: Normal breath sounds; no crackles or wheezes. CV: Heart is regular; no gallop or murmur. GI: Abdomen is soft and mildly tender below the right rib cage, anteriorly. There is no palpable mass or visceromegaly. Neuro: There is no focal deficits. ADDITIONAL DATA (from yesterday): Hemoglobin is 10.1 with normal WBC/platelet count. Electrolytes are normal. Creatinine is 1.22. Fasting glucose is 105. ASSESSMENT AND PLAN: Prostate cancer with metastases to bones. Multiple metastatic like lesions in the liver. Nausea and vomiting observed at admission subsided. His right upper quadrant abdominal pain seems to be under control. The patient decided for hospice at home. See oncology notes from today. Hypothyroidism. Clinically under control. His TSH was normal, when checked in November 2017. Anemia. Likely secondary to advanced prostate cancer. Relatively mild. No need to treat. Disposition: We expect hospice to be ready for outpatient management tomorrow. - Exam Vitals: Temp Pulse Resp BP Pulse Ox 97.8 F 93 18 120/68 95 06/09/18 18:53 06/09/18 18:53 06/09/18 18:53 06/09/18 18:53 06/09/18 18:53 Exam: xx - Assessment and Plan (1) Prostate cancer Current Visit: Yes Status: Acute (2) Dehydration Current Visit: Yes Status: Resolved (3) Nausea and vomiting Current Visit: Yes Status: Resolved (4) Hypothyroidism Current Visit: Yes Status: Acute (5) Anemia Current Visit: Yes Status: Chronic - Time Spent with Patient Total time spent is greater than 50% in coordination of care (as documented) at patient's floor/unit and/or counseling patient: 25 - 35 minutes Plan of Care Discussed with: patient Internal Medicine: Result - Labs CBC & Chem 7: 06/08/18 07:00 06/08/18 07:00 - ABG Interpretation ABG results: PT/INR, D-dimer PT 12.9 Seconds (9.4-12.1) H 06/05/18 14:53 Consult Discharge Plan - Plan Referrals: Martin Wiley MD [Partnered Physician] - 06/12/18 11:30 am (please follow up as schedule..) (3) Nausea and vomiting Qualifiers: Vomiting type: unspecified Qualified Code(s): R11.2 - Nausea with vomiting, unspecified (4) Hypothyroidism Qualifiers: Qualified Code(s): E03.9 - Hypothyroidism, unspecified (5) Anemia Qualifiers: Anemia type: unspecified type Qualified Code(s): D64.9 - Anemia, unspecified
[2018-06-10] MEDS: *HR* Heparin 5,000 UNIT/ML VIAL SQ SCH ×2 (05:02→18:25)
[2018-06-10] MEDS: Gabapentin 300 MG CAPSULE PO SCH (08:39)
[2018-06-10] MEDS: Cholecalciferol (D-3) 1,000 UNIT TABLET PO SCH (08:39)
[2018-06-10] MEDS: Loratadine 10 MG TABLET PO SCH (08:39)
[2018-06-10] MEDS: predniSONE 5 MG TABLET PO SCH ×2 (08:39→18:25)
[2018-06-10] MEDS: OXYCODONE Oral CONC 10 MG/0.5 ML ORAL.SYG SL PRN ×2 (10:54→15:33)
[2018-06-10] MEDS: Acetaminophen 325 MG TABLET PO PRN (12:01)
--- NOTE | 2018-06-10 21:17 | Internal Med Progress Note ---
Hospitalist Progress Note - Encounter Date of Encounter: 06/10/18 Time of Encounter: 19:00 - Subjective Interval History: SUBJECTIVE: The patients right upper quadrant abdominal pain is under controltakes when necessary oxycodone. Nausea and vomiting subsided. He uses supplemental oxygen at 3 L/min nasal cannula. Denies chest pain. Denies difficulty breathing. Denies coughing and wheezing. OBJECTIVE: Skin: Free of rash and discoloration. ENMT: Oral/pharyngeal mucosa is normal in appearance. Eyes: Sclera is white. There is no discharge from eyes. Respiratory: Normal breath sounds; no crackles or wheezes. CV: Heart is regular; no gallop or murmur. GI: Abdomen is soft and mildly tender below the right rib cage, anteriorly. There is no palpable mass or visceromegaly. Neuro: There is no focal deficits. ADDITIONAL DATA (from 06/08): Hemoglobin is 10.1 with normal WBC/platelet count. Electrolytes are normal. Creatinine is 1.22. Fasting glucose is 105. ASSESSMENT AND PLAN: Prostate cancer with metastases to bones. Multiple metastatic like lesions in the liver. Nausea and vomiting observed at admission subsided. His right upper quadrant abdominal pain seems to be under control. The patient decided for hospice at home. We are waiting for hospice to accept him. Hypothyroidism. Clinically under control. His TSH was normal, when checked in November 2017. Anemia. Likely secondary to advanced prostate cancer. Relatively mild. No need to treat. Disposition: The patient is ready to be discharged to hospice at home. - Exam Vitals: Temp Pulse Resp BP Pulse Ox 97.6 F 57 17 107/75 97 06/10/18 18:45 06/10/18 18:45 06/10/18 18:45 06/10/18 18:45 06/10/18 18:45 Exam: xx - Assessment and Plan (1) Prostate cancer Current Visit: Yes Status: Acute (2) Dehydration Current Visit: Yes Status: Resolved (3) Nausea and vomiting Current Visit: Yes Status: Resolved (4) Hypothyroidism Current Visit: Yes Status: Acute (5) Anemia Current Visit: Yes Status: Chronic - Time Spent with Patient Total time spent is greater than 50% in coordination of care (as documented) at patient's floor/unit and/or counseling patient: 25 - 35 minutes Plan of Care Discussed with: patient (and ) Internal Medicine: Result - Labs CBC & Chem 7: 03/17/19 07:00 06/08/18 07:00 - ABG Interpretation ABG results: PT/INR, D-dimer PT 12.9 Seconds (9.4-12.1) H 06/05/18 14:53 Consult Discharge Plan - Plan Referrals: Martin Wiley MD [Partnered Physician] - 06/12/18 11:30 am (please follow up as schedule..) _ (3) Nausea and vomiting Qualifiers: Vomiting type: unspecified Qualified Code(s): R11.2 - Nausea with vomiting, unspecified (4) Hypothyroidism Qualifiers: Qualified Code(s): E03.9 - Hypothyroidism, unspecified (5) Anemia Qualifiers: Anemia type: unspecified type Qualified Code(s): D64.9 - Anemia, unspecified
[2018-06-10] MEDS: *HR* LORazepam Oral Conc 2 MG/ML PO SCH (21:19)
[2018-06-11] MEDS: *HR* Heparin 5,000 UNIT/ML VIAL SQ SCH ×2 (05:13→17:22)
[2018-06-11] MEDS: OXYCODONE Oral CONC 10 MG/0.5 ML ORAL.SYG SL PRN (06:42)
[2018-06-11] MEDS: predniSONE 5 MG TABLET PO SCH ×2 (09:29→17:22)
[2018-06-11] MEDS: Cholecalciferol (D-3) 1,000 UNIT TABLET PO SCH (09:29)
[2018-06-11] MEDS: Gabapentin 300 MG CAPSULE PO SCH (09:29)
[2018-06-11] MEDS: Loratadine 10 MG TABLET PO SCH (09:29)
--- NOTE | 2018-06-11 15:17 | Internal Med Progress Note ---
Hospitalist Progress Note - Encounter Date of Encounter: 06/11/18 Time of Encounter: 09:36 - Subjective Interval History: Patient seen and examined this morning at bedside. No acute overnight events. Patient slightly drowsy as received ativan. Pain is controlled. Denies any other complaints. - Exam Vitals: Temp Pulse Resp BP Pulse Ox 97.4 F L 97 16 107/72 94 06/11/18 11:19 06/11/18 11:19 06/11/18 11:19 06/11/18 11:19 06/11/18 11:19 Exam: General: In no acute distress. Respiratory exam: CTAB. no accessory muscle use, rales, rhonchi, wheezes Cardiovascular exam: RRR, +S1, +S2. no murmur, gallop, rubs. GI/Abdominal exam: Non-tender, Non-distended, normal bowel sounds, soft, no peritoneal signs. Extremities exam: no pedal edema, warm, no calf tenderness. mildly tender ribs. Neurological exam: CN II-XII intact, AO X3, no focal deficits. Skin exam: No skin rash - Assessment and Plan (1) Prostate cancer Current Visit: Yes Status: Acute (2) Dehydration Current Visit: Yes Status: Resolved (3) Nausea and vomiting Current Visit: Yes Status: Resolved (4) Hypothyroidism Current Visit: Yes Status: Acute (5) Anemia Current Visit: Yes Status: Chronic - Summary of Assessment and Plan Summary of Assessment and Plan: Prostate cancer with metastases to bones. - Multiple metastatic like lesions in the liver. - patient decided for hospice at home after discussion with oncology - Awaiting for arrangement for for hospice at home - Continue pain and nause control medications - Time Spent with Patient Total time spent is greater than 50% in coordination of care (as documented) at patient's floor/unit and/or counseling patient: Internal Medicine: Result - Labs CBC & Chem 7: 06/08/18 07:00 06/08/18 07:00 - ABG Interpretation ABG results: PT/INR, D-dimer PT 12.9 Seconds (9.4-12.1) H 06/05/18 14:53 Consult Discharge Plan - Plan Instructions: Hospice Care (GEN) Referrals: Martin Wiley MD [Partnered Physician] - 06/12/18 11:30 am (please follow up as schedule..) (3) Nausea and vomiting Qualifiers: Vomiting type: unspecified Qualified Code(s): R11.2 - Nausea with vomiting, unspecified (4) Hypothyroidism Qualifiers: Qualified Code(s): E03.9 - Hypothyroidism, unspecified (5) Anemia Qualifiers: Anemia type: unspecified type Qualified Code(s): D64.9 - Anemia, unspecified
[2018-06-11] MEDS: *HR* LORazepam Oral Conc 2 MG/ML PO SCH (19:46)
[2018-06-12] MEDS: *HR* Heparin 5,000 UNIT/ML VIAL SQ SCH (05:12)
[2018-06-12] MEDS: Loratadine 10 MG TABLET PO SCH ×2 (09:18→09:28)
[2018-06-12] MEDS: Gabapentin 300 MG CAPSULE PO SCH (09:18)
[2018-06-12] MEDS: Cholecalciferol (D-3) 1,000 UNIT TABLET PO SCH (09:18)
[2018-06-12] MEDS: predniSONE 5 MG TABLET PO SCH (09:18)
[2018-06-12 10:48] VITALS: BP 104/64
[2018-06-12] MEDS ORDERED: *HR* LORazepam Oral Conc 2 MG/ML PO PRN (12:04)
[2018-06-12] MEDS ORDERED: OXYCODONE Oral CONC 10 MG/0.5 ML ORAL.SYG SL PRN (12:04)
--- NOTE | 2018-06-12 13:03 | Discharge Summary ---
- NOTES TO OUTPATIENT PROVIDER Notes to Outpatient Provider: Patient discharged with home hospice Date of Encounter: 06/12/18 Time of Encounter: 13:00 - Discharge Diagnosis (1) Prostate cancer Priority: Primary Status: Acute (2) Dehydration Priority: Secondary Status: Resolved (3) Nausea and vomiting Priority: Primary Status: Resolved Qualifiers: Vomiting type: unspecified Qualified Code(s): R11.2 - Nausea with vomiting, unspecified (4) Hypothyroidism Priority: Secondary Status: Acute Qualifiers: Qualified Code(s): E03.9 - Hypothyroidism, unspecified (5) Anemia Priority: Secondary Status: Chronic Qualifiers: Anemia type: unspecified type Qualified Code(s): D64.9 - Anemia, unspecified Hospital course: Mr. Sanchez is a 87 year old male was admitted for nausea and vomiting. He has history of prostate cancer and was on chemotherapy. Abdominal imaging showed progression of prostate cancer. Oncology was consulted. MRI did not show brain metastasis but diffuse body mets. After discussion with oncology patient decided not to pursue aggressive treatment. Patient awaited while home hospice arrangements were made. Patient was subsequently discharge today as home hospice was arranged. Discharge discussed with: patient, family, social work, case management - Time Spent with Patient Total time spent providing and/or coordinating discharge services: Time spent: Greater than 30 minutes - Discharge Medications Prescriptions: New OxyCODONE/APAP 5/325 [Percocet 5/325 MG] 1 each PO Q8HR PRN 3 Days #9 tablet PRN Reason: Pain LORazepam [Ativan] 0.5 mg PO Q12HR PRN 3 Days #6 tablet PRN Reason: Anxiety Continue Levothyroxine [Synthroid] 112 mcg PO 0630 Tamsulosin HCl [Flomax] 0.4 mg PO DAILY Ondansetron HCl [Zofran] 4 mg PO Q8HR PRN #90 tab PRN Reason: Nausea Cholecalciferol (D-3) [Vitamin D] 1,000 unit PO DAILY Loratadine [Allergy Relief] 10 mg PO DAILY Acetaminophen/Diphenhydramine [Acetaminophen Pm Caplet] 1 each PO QPM PRN PRN Reason: Pain Gabapentin [Neurontin] 600 mg PO DAILY Discontinued Lupron Depot 45 mg IM [id number] PredniSONE [Acm] 5 mg PO BID #180 tablet. Pegfilgrastim [Neulasta (For Outpatient Infusion)] 6 mg SQ AD Denosumab [Xgeva] 120 mg SQ QMONTH Home Medications: Levothyroxine [Synthroid] 112 mcg PO 0630 12/14/16 [History] Tamsulosin HCl [Flomax] 0.4 mg PO DAILY 01/11/17 [History] Gabapentin [Neurontin] 600 mg PO DAILY 04/24/17 [History] Ondansetron HCl [Zofran] 4 mg PO Q8HR PRN #90 tab 04/18/18 [Rx] Acetaminophen/Diphenhydramine [Acetaminophen Pm Caplet] 1 each PO QPM PRN 06/06/18 [History] Cholecalciferol (D-3) [Vitamin D] 1,000 unit PO DAILY 06/06/18 [History] Loratadine [Allergy Relief] 10 mg PO DAILY 06/06/18 [History] LORazepam [Ativan] 0.5 mg PO Q12HR PRN 3 Days #6 tablet 06/12/18 [Rx] OxyCODONE/APAP 5/325 [Percocet 5/325 MG] 1 each PO Q8HR PRN 3 Days #9 tablet 06/12/18 [Rx] Allergies/Adverse Reactions: Allergy/AdvReac Type Severity Reaction Status Date / Time Penicillins Allergy UNKNOWN Verified 06/05/18 11:52 Date of admission: 06/09/18 18:47 Primary care physician: PCP NONE Consults: 06/05/18 15:09 Consult to Oncology Hematology [CONS] Stat Consulting Provider: Soto Bui Reason for Consult: possible tumor lysis Time Notified: 15:10 Call Completed: Yes 06/05/18 18:41 Consult to Pastoral Services [CONS] Routine Comment: Discharging clinician: Arthur Panchalel - Constitutional Vitals: Temp Pulse Resp BP Pulse Ox 97.6 F 99 18 104/64 95 06/12/18 10:47 06/12/18 10:47 06/12/18 10:47 06/12/18 10:47 06/12/18 10:47 Exam: General: In no acute distress. Respiratory exam: CTAB. no accessory muscle use, rales, rhonchi, wheezes Cardiovascular exam: RRR, +S1, +S2. no murmur, gallop, rubs. GI/Abdominal exam: Non-tender, Non-distended, normal bowel sounds, soft, no peritoneal signs. Extremities exam: no pedal edema Neurological exam: CN II-XII intact, AO X3, no focal deficits. Skin exam: No skin rash - Patient Status Disposition: Hospice - Home Condition: Fair - Discharge Instructions Instructions: Hospice Care (GEN) Follow Up With: Martin Wiley MD [Partnered Physician] - (Patient going home with [facility]. No need for hospital follow up at this time)
[2018-06-12] MEDS ORDERED: Ondansetron ODT 4 MG TAB.RAPDIS SL ONE (14:36)
== END 2018-06-12 14:47 | disposition hospice, home (50) | DRG 641 ==
LOC: 2ANU 11:39 → EMEROOARM 11:39 → SUATTDRO 15:55 → 2ANU 16:47 → SUATTDRO 06-09 18:47
PROVIDERS: ADMIT Internal Medicine; ATTEND Internal Medicine